=== PATIENT | male | born 1955 | race Caucasian/White ===

== ENCOUNTER → 2023-10-26 | Outpatient (CLI) | payer MEDICARE, OTHER ==
[2023-10-26 15:08] LABS: Creatinine, Urine Random 32.4 mg/dL (27.00-270.00); Microalbumin, Random Urine 30.4 mg/L (0.000-20.000)
== END ==
LOC: LAB 09:40 → LAB SHORT 09:40
PROVIDERS: Physician Assistant
DX: E11.9 Type 2 diabetes mellitus without complications (principal)
CPT/HCPCS: 82043; 82570